=== PATIENT | female | born 1960 | race Caucasian/White ===

== ENCOUNTER 2022-05-17 08:51 | Inpatient (IN) | payer OTHER ==
[2022-05-17 09:32] VITALS: BMI 31.1
[2022-05-17] MEDS ORDERED: IBUPROFEN 400 MG TABLET (FP) PO PRN (10:36)
[2022-05-17] MEDS ORDERED: BISMUTH SUBSALICYLATE 524 MG/30 ML PO PRN (10:36)
[2022-05-17] MEDS ORDERED: POLYETHYLENE GLYCOL (HEALTHYLAX) 3350 17 GM PACKET PO PRN (10:36)
[2022-05-17] MEDS ORDERED: NALOXONE HCL (KLOXXADO) 8 MG SPRAY NS PRN (10:36)
[2022-05-17] MEDS ORDERED: BUPRENORPHINE HCL 150 MCG, BUPRENORPHINE HCL 75 MCG BC PRN (10:36)
[2022-05-17] MEDS ORDERED: IBUPROFEN 600 MG TABLET (FP) PO PRN (10:36)
[2022-05-17] MEDS ORDERED: BENZOCAINE/MENTHOL (CHLORASEPTIC ) LOZENGE MM PRN (10:36)
[2022-05-17] MEDS ORDERED: diazePAM 5 MG TABLET PO PRN (10:36)
[2022-05-17] MEDS ORDERED: LOPERAMIDE HCL 2 MG CAPSULE PO PRN (10:36)
[2022-05-17] MEDS ORDERED: MAGNESIUM HYDROX 2400MG/30ML ORAL SUSPENSION 30 ML CUP PO PRN (10:36)
[2022-05-17] MEDS ORDERED: DICYCLOMINE HCL 10 MG CAPSULE PO PRN (10:36)
[2022-05-17] MEDS ORDERED: ACETAMINOPHEN 325 MG TABLET (FP) PO PRN ×2 (10:36)
[2022-05-17] MEDS ORDERED: MAG HYDROX/AL HYDROX/SIMETH 30 ML UNIT-DOSE CUP PO PRN (10:36)
[2022-05-17] MEDS ORDERED: ONDANSETRON *ODT* 4 MG TABLET SL PRN (10:36)
[2022-05-17] MEDS ORDERED: BUPRENORPHINE HCL 75 MCG FILM BC ONE (10:57)
[2022-05-17] MEDS ORDERED: BUPRENORPHINE HCL 150 MCG FILM BC ONE (10:57)
[2022-05-17] MEDS ORDERED: cloNIDine HCL 0.1 MG TABLET PO ONE (11:00)
[2022-05-17] MEDS ORDERED: BUPRENORPHINE HCL 150 MCG, BUPRENORPHINE HCL 75 MCG BC ONE (11:00)
[2022-05-17] MEDS ORDERED: diazePAM 5 MG TABLET ONE (11:19)
[2022-05-17] MEDS ORDERED: PRENATAL VITAMINS W/ FOLIC ACID TABLET (FP) PO ONE (11:21)
[2022-05-17] MEDS: PRENATAL VITAMINS W/ FOLIC ACID TABLET (FP) PO SCH (11:30)
[2022-05-17] MEDS: diazePAM 5 MG TABLET PO SCH ×3 (11:31→22:42)
[2022-05-17] MEDS ORDERED: PATIENT'S OWN MEDICATION (NON-FORMULARY) (Ibuprofen/Famotidine [Duexis 800-26.6 Mg Tablet] PO PRN (12:26)
[2022-05-17] MEDS ORDERED: cloNIDine HCL 0.1 MG TABLET PO PRN (14:37)
[2022-05-17] MEDS: MELATONIN 5 MG TABLETS PO SCH (22:43)
[2022-05-17] MEDS: THIAMINE HCL 100 MG TABLET (FP) PO SCH (22:43)
[2022-05-18] MEDS ORDERED: BUPRENORPHINE HCL 150 MCG, BUPRENORPHINE HCL 75 MCG BC PRN
[2022-05-18] MEDS: diazePAM 5 MG TABLET PO SCH ×4 (05:57→22:26)
[2022-05-18] MEDS: BUPRENORPHINE HCL 150 MCG, BUPRENORPHINE HCL 75 MCG BC SCH ×2 (06:29→17:24)
[2022-05-18] MEDS: amLODIPine BESYLATE 2.5 MG TABLET (FP) PO SCH (10:12)
[2022-05-18] MEDS: PRENATAL VITAMINS W/ FOLIC ACID TABLET (FP) PO SCH (10:12)
[2022-05-18 11:22] LABS: CALCIUM 9.1 mg/dL (8.5-10.1)
[2022-05-18 11:23] LABS: ALBUMIN 3.5 g/dl (3.4-5.0); BLOOD UREA NITROGEN 20.7 mg/dL (7-18)
[2022-05-18 11:24] LABS: HEMATOCRIT 34.4 % (32.4-45.2); HEMOGLOBIN 11.7 GM/dL (10.7-15.3); MCH 30.8 pg (25.7-33.7); MCHC 33.9 g/dl (32.0-36.0); MEAN CELL VOLUME 90.9 fl (80-96); MEAN PLT VOLUME 7.9 fl (7.5-11.1); PLATELET COUNT 235 10^3/uL (134-434); RBC 3.78 M/mm3 (3.60-5.2); RDW 13.9 % (11.6-15.6); WHITE BLOOD COUNT 5.5 K/mm3 (4.0-10.0)
[2022-05-18 11:27] LABS: CREATININE 0.9 mg/dL (0.55-1.3)
[2022-05-18 11:28] LABS: BILIRUBIN,TOTAL 0.3 mg/dL (0.2-1); TOT PROT 6.5 g/dl (6.4-8.2)
[2022-05-18] MEDS: MELATONIN 5 MG TABLETS PO SCH (22:25)
[2022-05-18] MEDS: THIAMINE HCL 100 MG TABLET (FP) PO SCH (22:25)
[2022-05-18] MEDS: METHOCARBAMOL 500 MG TABLET PO PRN (22:26)
[2022-05-19] MEDS: BUPRENORPHINE HCL 450 MCG FILM BC SCH ×2 (05:31→18:25)
[2022-05-19] MEDS: diazePAM 5 MG TABLET PO SCH ×3 (05:31→22:23)
[2022-05-19] MEDS: hydrOXYzine PAMOATE 25 MG CAPSULE (FP) PO PRN (10:19)
[2022-05-19] MEDS: PRENATAL VITAMINS W/ FOLIC ACID TABLET (FP) PO SCH (10:19)
[2022-05-19] MEDS: diazePAM 5 MG TABLET PO PRN (10:20)
[2022-05-19] MEDS: amLODIPine BESYLATE 2.5 MG TABLET (FP) PO SCH (10:20)
[2022-05-19] MEDS: METHOCARBAMOL 500 MG TABLET PO PRN ×2 (14:47→22:24)
[2022-05-19] MEDS: MELATONIN 5 MG TABLETS PO SCH (22:23)
[2022-05-19] MEDS: THIAMINE HCL 100 MG TABLET (FP) PO SCH (22:23)
[2022-05-20] MEDS: BUPRENORPHINE/NALOXONE 4 MG/1 MG FILM PACKET SL SCH ×2 (05:35→17:56)
[2022-05-20] MEDS: diazePAM 5 MG TABLET PO SCH ×2 (05:36→18:53)
[2022-05-20] MEDS: diazePAM 5 MG TABLET PO PRN (06:51)
[2022-05-20] MEDS: METHOCARBAMOL 500 MG TABLET PO PRN ×2 (06:51→22:22)
[2022-05-20] MEDS: PRENATAL VITAMINS W/ FOLIC ACID TABLET (FP) PO SCH (09:58)
[2022-05-20] MEDS: amLODIPine BESYLATE 2.5 MG TABLET (FP) PO SCH (09:58)
[2022-05-20] MEDS: hydrOXYzine PAMOATE 25 MG CAPSULE (FP) PO PRN ×2 (09:58→18:54)
[2022-05-20] MEDS: MELATONIN 5 MG TABLETS PO SCH (22:21)
[2022-05-20] MEDS: THIAMINE HCL 100 MG TABLET (FP) PO SCH (22:21)
[2022-05-21] MEDS ORDERED: diazePAM 5 MG TABLET PO ONE (06:00)
[2022-05-21] MEDS ORDERED: BUPRENORPHINE/NALOXONE 8 MG/2 MG FILM PACKET SL ONE (06:00)
[2022-05-21] MEDS: METHOCARBAMOL 500 MG TABLET PO PRN (06:09)
[2022-05-21] MEDS: hydrOXYzine PAMOATE 25 MG CAPSULE (FP) PO PRN (06:09)
[2022-05-21] MEDS: PRENATAL VITAMINS W/ FOLIC ACID TABLET (FP) PO SCH (10:30)
[2022-05-21] MEDS: amLODIPine BESYLATE 2.5 MG TABLET (FP) PO SCH (10:30)
[2022-05-21 12:45] VITALS: BP 119/87; PULSE 73; RESP 16; TEMP 96.9
== END 2022-05-21 13:03 | disposition home or self-care (01) | DRG 773 ==
LOC: YASAS 08:51 → Y3N 11:29
PROVIDERS: ADMIT Allergy & Immunology; ATTEND Surgery
PROC: HZ2ZZZZ Detoxification Services for Substance Abuse Treatment (ICD-10-PCS; principal; 2022-05-17)
DX: F11.23 Opioid dependence with withdrawal (principal); F13.230 Sedative, hypnotic or anxiolytic dependence with withdrawal, uncomplicated; F19.24 Other psychoactive substance dependence with psychoactive substance-induced mood disorder; F41.9 Anxiety disorder, unspecified; I10 Essential (primary) hypertension; M06.9 Rheumatoid arthritis, unspecified; M54.50 Low back pain, unspecified; G89.29 Other chronic pain; Z87.891 Personal history of nicotine dependence
CPT/HCPCS: 36415; 80053; 85027; 86780; 93005; 93010; C9803-CS; U0003; U0005